=== PATIENT | female | born 1925 | race Caucasian/White ===

== ENCOUNTER 2016-05-02 11:31 | Observation (INO) | payer MEDICARE ==
[2016-05-02] MEDS ORDERED: IPRATROPIUM/ALBUTEROL 3 ML VIAL NEB ONE ×2 (11:56→13:54)
[2016-05-02] MEDS ORDERED: cefTRIAXone SODIUM 1 GM in SODIUM CHL 0.9% 50ML MIN-BAG+ 50 ML IVPB ONE (13:54)
[2016-05-02] MEDS ORDERED: methylPREDNISolone SODIUM SUC 125 MG/2 ML VIAL IV ONE (13:54)
[2016-05-02] MEDS ORDERED: AZITHROMYCIN 250 MG TAB PO ONE (13:54)
--- NOTE | 2016-05-02 14:10 | RAD ---
EXAM DESCRIPTION: XR CHEST 2 VIEWS CLINICAL HISTORY: sob COMPARISON: July 13, 2014 TECHNIQUE: PA/lateral FINDINGS: Stable moderate-sized hiatal hernia. There is no cardiac or pulmonary abnormality. The lungs are clear. There is no effusion. IMPRESSION: All findings are unchanged when compared to prior from July 2014. Electronically signed by: Emre Sargent MD 05/02/2016 14:08
[2016-05-02] MEDS ORDERED: SODIUM CHL 0.9% 50ML MIN-BAG+ 50 ML IVPB ONE (14:13)
[2016-05-02] MEDS ORDERED: cefTRIAXone SODIUM 1 GM VIAL ONE (14:13)
--- NOTE | 2016-05-02 14:20 | ED.PDOC ---
History of Present Illness - General Chief Complaint: Respiratory Problem Stated Complaint: shortness of breath, cough and congestion Time Seen by Provider: 05/02/16 11:55 Source: patient Exam Limitations: no limitations - History of Present Illness Initial Comments: The patient is an 89-year-old female presenting to the emergency room with her daughter. the patient is presenting secondary to progressive shortness of breath over the last week. she reports a runny nose and a significant cough. she is having some chest pain but mainly with cough. She is very short of breath with any activity. she is initially in signifcant respiratory distress. she is showing significant increased work of breathing initially with very little air movement and significant nasal flaring and posturing. she is feeling fatigue with the constant increase work of breathing. she is maintaining a saturation greater than 90% on room air but has significant less dyspnea when on supplemental oxygen. she has been doing xopenex nebs q6 hours for the last 5 days. she has a significant hx of COPD and asthma. no palpitations or edema. the patient is not tachypneic as one would expect. She is maintaining fairly normal breathing rate but the breaths are extremely harsh and forced. Timing/Duration: 1 week Severity: severe Improving Factors: medication Worsening Factors: movement Associated Symptoms: cough, fever/chills, malaise, shortness of breath, weakness Allergies/Adverse Reactions: Allergies Sulfa Drugs Allergy (Severe, Verified 05/02/16 11:46) Home Medications: Ambulatory Orders Albuterol Sulfate [Proair Hfa] 108 mcg INH PRN 07/09/14 Amitriptyline HCl [Elavil] 50 mg PO BEDTIME 07/09/14 Budesonide Inhaler [Pulmicort Flexhaler] 1 puff INH BID 07/09/14 Esomeprazole Magnesium [Nexium] 40 mg PO DAILY 07/09/14 Gabapentin [Neurontin] 1,200 mg PO BEDTIME 07/09/14 Levothyroxine Sodium [Synthroid] 100 mcg PO DAILY 07/09/14 Furosemide [Lasix Tab] 40 mg PO DAILY #30 tab 07/13/14 Mirtazapine [Remeron] 15 mg PO BEDTIME #30 tab 07/13/14 Potassium Chloride [K-Tab] 20 meq PO ACBK #30 tab 07/13/14 predniSONE [Prednisone] 20 mg PO DAILY #21 tab 07/13/14 Past Medical History (General) - Patient Medical History Hx Seizures: No Hx Stroke: No Hx Asthma: Yes Hx of COPD: Yes Hx Cardiac Disorders: Yes Hx Congestive Heart Failure: No Hx Pacemaker: No Hx Hypertension: No Hx Thyroid Disease: Yes Hx Diabetes: No Hx MRSA: Yes - abdomen wound 2014 MRSA Source:: Wound - Vaccination History Hx Tetanus, Diphtheria Vaccination: No Hx Influenza Vaccination: Yes Hx Pneumococcal Vaccination: Yes - Social History Hx Tobacco Use: Yes Hx Alcohol Use: No Hx Substance Use: No Hx Physical Abuse: No Hx Emotional Abuse: No - Activities of Daily Living Hospice Agency (if applicable):: None - Female History Patient is a Female of Child Bearing Age (10 -59 yrs old): No Patient : No Family Medical History - Family History Mother Family History: No Known Living Status: Physical Exam - Physical Exam General Appearance: Alert, Anxious, Obvious distress, Ill Appearing Eye Exam: bilateral normal Ears, Nose, Throat: other - nasal flaring. nares red with clr rhinnorhea. Neck: non-tender, full range of motion, supple, other - significant supraclavicular retractions. Respiratory: chest non-tender, respiratory distress, decreased breath sounds, accessory muscle use, crackles, rhonchi, wheezing Cardiovascular/Chest: normal peripheral pulses, no edema Peripheral Pulses: radial,right: 2+, radial,left: 2+, dorsalis pedis,right: 2+, dorsalis pedis,left: 2+ Gastrointestinal/Abdominal: non tender, soft - obses Rectal Exam: deferred Back Exam: normal inspection, no CVA tenderness Extremity: normal range of motion, non-tender, normal inspection, no pedal edema , no calf tenderness, normal capillary refill Neurologic: saturator tender II-XII nml as tested, alert, oriented x 3 Skin Exam: pallor Comments: Vital Signs - 24 hr 05/02/16 05/02/16 05/02/16 11:35 11:47 12:16 Temperature 99.2 F Pulse Rate Pulse Rate [ 78 67 pulse ox] Respiratory 22 22 22 Rate Blood Pressure 147/61 [Left Arm] O2 Sat by Pulse 99 98 Oximetry 05/02/16 12:38 Temperature Pulse Rate 81 Pulse Rate [ pulse ox] Respiratory 20 Rate Blood Pressure [Left Arm] O2 Sat by Pulse 98 Oximetry above o2 sats with O2. without 91% and decreases with activity. Progress - Progress Progress: 05/02/16 14:23 the patient is an 89-year-old female with a significant COPD exacerbation presenting with significant respiratory distress and demonstrating marked respiratory fatigue, while still managing to maintain an oxygen saturation that is technically adequate. I do not see any evidence of a lobar pneumonia. she has responded very well to supplemental oxygen which she does not have at home. she is receiving iv solumedrol, rocephin and aithromycin here and will be admitted for the exacerbation primarily due to the respiratory distress and fatigue. she has a high probability of deterioration if sent home with her advanced age and current condition. - Results/Orders Results/Orders: Laboratory Tests 05/02/16 12:10 WBC 5.7 RBC 4.56 Hgb 10.6 L Hct 33.4 L MCV 73.2 L MCH 23.2 L MCHC 31.7 L RDW 15.7 H Plt Count 155 MPV 9.8 Absolute Neuts (auto) 3.40 Absolute Lymphs (auto) 1.30 Absolute Monos (auto) 0.70 Absolute Eos (auto) 0.20 Absolute Basos (auto) 0.10 Neutrophils % 59.8 Lymphocytes % 22.5 Monocytes % 12.6 H Eosinophils % 4.1 Basophils % 1.0 PT 11.1 INR 0.980 PTT (SP) 26.7 Sodium 138 Potassium 4.7 Chloride 103 Carbon Dioxide 28 Anion Gap 11.7 L BUN 17 Creatinine 1.01 BUN/Creatinine Ratio 16.8 Random Glucose 93 Serum Osmolality 276.9 Calcium 9.2 Total Bilirubin 0.2 AST 22 ALT 12 Alkaline Phosphatase 78 Creatine Kinase 84 CK-MB (CK-2) 2.6 CK-MB (CK-2) % Not Reportable Troponin I < 0.02 B-Natriuretic Peptide 65.3 Serum Total Protein 6.9 Albumin 3.8 Globulin 3.1 Albumin/Globulin Ratio 1.2 cxr cw copd. Departure - Departure Clinical Impression: COPD exacerbation, Respiratory distress Disposition: Admit Patient Home Medications: Ambulatory Orders Albuterol Sulfate [Proair Hfa] 108 mcg INH PRN 07/09/14 Amitriptyline HCl [Elavil] 50 mg PO BEDTIME 07/09/14 Budesonide Inhaler [Pulmicort Flexhaler] 1 puff INH BID 07/09/14 Esomeprazole Magnesium [Nexium] 40 mg PO DAILY 07/09/14 Gabapentin [Neurontin] 1,200 mg PO BEDTIME 07/09/14 Levothyroxine Sodium [Synthroid] 100 mcg PO DAILY 07/09/14 Furosemide [Lasix Tab] 40 mg PO DAILY #30 tab 07/13/14 Mirtazapine [Remeron] 15 mg PO BEDTIME #30 tab 07/13/14 Potassium Chloride [K-Tab] 20 meq PO ACBK #30 tab 07/13/14 predniSONE [Prednisone] 20 mg PO DAILY #21 tab 07/13/14 Decision To Admit - Decistion To Admit Decision to Admit Reason: Medical Nature Decision to Admit Date: 05/02/16 Decision to Admit Time: 14:30
--- NOTE | 2016-05-02 15:50 | HP ---
SUPERVISING PHYSICIAN: Joseph Calderón MD CHIEF COMPLAINT: Shortness of breath with cough and congestion. HISTORY OF PRESENT ILLNESS: Ms. Delaney is an 89-year-old, female who presented to the Emergency Department via privately owned vehicle with her family complaining of progressive shortness of breath over the last week. She does report she has had a runny nose and a significant cough and has been having some chest pains associated with the cough. She notes she becomes very short of breath with minimal activity. In the Emergency Department, she presented with significant respiratory distress showing increase in breathing with very little air movement and significant nasal flaring and posturing. She noted she was feeling fatigued with constant increased of work to breathe and was barely maintaining O2 saturations greater than 90% on room air. Once placed on supplemental oxygen, the patient had less dyspnea. It was noted she had been taking her Xopenex treatments every 6 hours for well over the last five days. She does have a significant history of chronic obstructive pulmonary disease and asthma. Laboratory studies in the Emergency Room showed the patient had a normal white count initially at 5.7 with no left shift. In the Emergency Department, she initially was given Solu-Medrol 125 mg along with initiation of antibiotics to include azithromycin and ceftriaxone along with DuoNeb treatments. Given the patient's advanced age, underlying comorbidities and exacerbation of chronic obstructive pulmonary disease requiring increasing use of her bronchodilators and showing severe dyspnea with any exertional effort , the patient will be placed in observation for close monitoring and treatment. PAST MEDICAL HISTORY: 1. Seasonal allergies. 2. Gastroesophageal reflux disease. 3. Hyperlipidemia. 4. Hypothyroidism. 5. Osteoarthritis. 6. Congestive heart failure with grade 1 diastolic dysfunction with an estimated 60% ejection fraction on most recent echocardiogram in 08/25. 7. Chronic obstructive pulmonary disease with asthma component. 8. Diverticulosis. 9. Menopause. 10. Peripheral sensory neuropathies. 11. Macular degeneration, left eye. PAST SURGICAL HISTORY: 1. Bilateral cataract removal. 2. Bilateral knee replacement. 3. Tonsillectomy. 4. Bladder suspension. 5. Hysterectomy with bilateral salpingo-oophorectomy. 6. Corneal transplant, right eye. HOME MEDICATIONS: 1. Xanax 0.25 mg at bedtime. 2. Neurontin 1200 mg at bedtime. 3. Lasix 40 mg daily. 4. Nexium 40 mg daily. 5. ProAir 180 mcg inhaled as needed. 6. Potassium chloride 10 mEq daily. 7. Synthroid 100 mcg daily. ALLERGIES: SULFA DRUGS, LIPITOR. FAMILY HISTORY: Father at age 83. Mother at age 95 from congestive heart failure. There is also note of history of cancer in a brother and pancreatic cancer in a sister, both . 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 She lives in [place]. She has never smoked or drank alcohol. She has been for over 70 years. REVIEW OF SYSTEMS: CONSTITUTIONAL: Denies any fevers, chills. She notes she has had an unintentional weight loss over the last several months of approximately 15 to 20 pounds secondary to no appetite. HEENT: Notable nasal congestion with a runny nose, but no sore throat or headaches mentioned. RESPIRATORY: As noted in history of present illness, increasing dyspnea with cough. CARDIOVASCULAR: Denies chest pain or palpitations or syncopal episodes. GASTROINTESTINAL: Denies nausea or vomiting. Denies diarrhea or constipation. GENITOURINARY: Denies dysuria, increased frequency or other urinary symptoms. NEUROLOGIC: Facial features are symmetrical. Extraocular movements are within normal limits. There is no nystagmus noted. There are no discernible neuromotor deficits on exam. She is alert and oriented times three. PHYSICAL EXAMINATION: CHEST: Decreased breath sounds throughout with some very faint inspiratory and expiratory wheezing with some coarse rhonchi sounds, more prominent over the left compared to the right. NEUROLOGIC: Facial features are symmetrical. Extraocular movements are within normal limits. There is no nystagmus noted. There are no discernible neuromotor deficits on exam. She is alert and oriented times three. LABORATORY: White count normal at 5.7, hemoglobin 10.6, hematocrit 33.4. RBC indices show a microcytic/hypochromic presentation. Differential within normal limits. Coagulation studies show normal PT, PT-T. Chemistries show normal electrolytes with potassium 4.7, BUN 17, creatinine 1.0. Liver functions within normal limits. She had two troponins that were less than 0.02 prior to admission. BNP 65. MICROBIOLOGY: Influenza by PCR was negative for A and B. RADIOLOGY: Chest x-ray per radiology interpretation, two view, shows no changes compared to prior exam in 07/2014 with lungs essentially clear with no effusion with stable moderate sized hiatal hernia. ASSESSMENT: 1. Acute exacerbation of chronic obstructive pulmonary disease with some respiratory distress as noted on admission through the Emergency Department with the patient using accessory respiratory muscles with significant respiratory fatigue in efforts to maintain a minimal oxygen saturation. 2. Chronic obstructive pulmonary disease with asthma component with exacerbation noted in #1 requiring ongoing bronchodilators and pulmonary hygiene to maintain O2 saturation of minimum of 92% on nasal cannula at rest. 3. Chronic congestive heart failure with diastolic dysfunction with last echocardiogram in 2014 showing ejection fraction of approximately 60%. 4. History of diverticulosis without any clinical signs or symptoms of diverticulitis on admission. 5. Peripheral sensory neuropathies for which she takes gabapentin. PLAN: The patient will be placed in observation for close monitoring and treatment of underlying exacerbation of chronic obstructive pulmonary disease. She will be provided O2 as needed, aggressive pulmonary hygiene to include DuoNeb treatments. She was started on antibiotic therapy to include azithromycin and ceftriaxone and we will continue this regimen pending sputum culture. She was also started initially on Solu-Medrol 125 mg. This will be continued with 80 mg q.6h. once admitted. We will anticipate length of stay to be at last one to two days. Until then, we will continue to monitor the patient closely and treat appropriately. #[id number] [facility]
[2016-05-02] MEDS ORDERED: ACETAMINOPHEN 325 MG TAB PO PRN (18:33)
[2016-05-02] MEDS ORDERED: ALBUTEROL SULFATE 2.5 MG/3 ML VIAL NEB PRN (18:33)
[2016-05-02] MEDS ORDERED: HYDROcodone 5MG/APAP 325MG 1 EA TAB PO PRN (18:33)
[2016-05-02] MEDS ORDERED: MAGNESIUM HYDROXIDE 30 ML UD PO PRN (18:33)
[2016-05-02] MEDS ORDERED: IV SET AND CAP CHANGE INJ INJ SCH (19:00)
[2016-05-02] MEDS ORDERED: IPRATROPIUM/ALBUTEROL 3 ML VIAL INH SCH (20:00)
[2016-05-02] MEDS ORDERED: GABAPENTIN 400 MG CAP ONE (20:51)
[2016-05-02] MEDS ORDERED: ALPRAZolam 0.25 MG TAB PO SCH (21:00)
[2016-05-02] MEDS ORDERED: GABAPENTIN 1200 MG PO SCH (21:00)
[2016-05-02] MEDS: methylPREDNISolone SODIUM SUC 125 MG/2 ML VIAL IV SCH (21:29)
[2016-05-02] MEDS: SODIUM CHLORIDE 0.9% (FLUSH) 10 ML SYG IV PRN (21:30)
--- NOTE | 2016-05-03 00:18 | PCM.CORE ---
Physician DVT/VTE - Nurse DVT Assessment & Total Each Risk Factor Represents 3 Points: Age over 75 years, Medical PT with Hx of MD, CHF, Severe infection/sepsis Each Risk Factor is 1 Point: Obesity (BMI >25), Serious Lung disease (pnemonia < 1month, COPD, emphysema,etc) DVT Assessment Score: 8 - 5 or more Very High Risk Treatments: Early Ambulation *, Sequential Compression Device Pharmacological: Enoxaparin 40mg SQ Daily
[2016-05-03] MEDS: SODIUM CHLORIDE 0.9% (FLUSH) 10 ML SYG IV PRN ×2 (03:04→06:40)
[2016-05-03] MEDS: methylPREDNISolone SODIUM SUC 125 MG/2 ML VIAL IV SCH ×2 (03:06→09:30)
[2016-05-03] MEDS ORDERED: SODIUM CHLORIDE 0.9% 10 ML VIAL ONE (05:54)
[2016-05-03] MEDS ORDERED: PANTOPRAZOLE SODIUM IV 40 MG VIAL IV SCH (06:30)
[2016-05-03] MEDS ORDERED: SODIUM CHLORIDE 0.9% 10 ML VIAL IV PRN (07:43)
[2016-05-03] MEDS ORDERED: FUROSEMIDE 40 MG TAB PO SCH (09:00)
[2016-05-03] MEDS ORDERED: POTASSIUM CHLORIDE 10 MEQ TAB PO SCH (09:00)
[2016-05-03] MEDS ORDERED: LEVOTHYROXINE SODIUM 0.1 MG TAB PO SCH (09:00)
[2016-05-03] MEDS ORDERED: NON-FORMULARY MEDICATION 1 EA MIS (Esomeprazole Magnesium [Nexium] 40 MG) PO SCH (09:00)
[2016-05-03] MEDS ORDERED: ENOXAPARIN SODIUM 40 MG/0.4 ML SYG SUBCU SCH (10:00)
[2016-05-03 10:39] VITALS: BP 127/69; TEMP 97.2; O2SAT 95
[2016-05-03] MEDS ORDERED: BUDESONIDE/FORMOTEROL 160/4.5 60 PUFF/6 GM INH INH SCH (11:30)
[2016-05-03] MEDS ORDERED: AZITHROMYCIN IV 500 MG in SODIUM CHLORIDE 0.9% 250ML 250 ML IVPB SCH (12:00)
[2016-05-03] MEDS ORDERED: cefTRIAXone SODIUM 1 GM in SODIUM CHL 0.9% 50ML MIN-BAG+ 50 ML IVPB SCH (14:00)
--- NOTE | 2016-05-03 14:26 | DS ---
SUPERVISING PHYSICIAN: Joseph Calderón MD DISCHARGE DIAGNOSIS: 1. Acute exacerbation of chronic obstructive pulmonary disease with some respiratory distress as noted on admission. She was fairly dyspneic in the Emergency Room, although she was able to maintain a minimal oxygen saturation. 2. Chronic obstructive pulmonary disease with asthma component with exacerbation as noted in #1. Several months ago, she stopped her LABA/inhaled steroid and was only using her albuterol and had an O2 saturation of 92% on nasal cannula at rest. 3. Chronic congestive heart failure with diastolic dysfunction, last echocardiogram was in 2014 showing an ejection fraction of approximately 60%. 4. Seasonal allergies. 5. History of diverticulosis. 6. Peripheral sensory neuropathies, presently on gabapentin. HISTORY OF PRESENT ILLNESS: This is an 89-year-old female who presented to the Emergency Room on the date of admission complaining of progressive shortness of breath that has been going on over the last week. She had a significant cough and had some chest discomfort associated with that cough. She reported that she became very short of breath with minimal activity. In the Emergency Room, she had significant dyspnea with increase in work of breathing with significant nasal flaring and posturing. She complained of fatigue, but her O2 saturations were maintained at about 90% on room air. When she was given supplemental oxygen, she was less dyspneic and her oxygen saturations were up to 92%. Dr. Rojas is her primary care physician and she has been on long acting beta agonist as well as an inhaled steroid in the past, but she had not been taking it and the only thing she had been taking was Xopenex. She was taking those approximately four times a day over the last five days. Laboratory in the Emergency Room, the patient had a normal white count initially of 5.7. She was given Solu-Medrol along with initiation of antibiotics including azithromycin and ceftriaxone. The patient was admitted to the hospital for observation. HOSPITAL COURSE: The patient's respiratory status progressively improved with steroid administration as well as her antibiotics. She is feeling much better today and her vital signs have been stable. She has been afebrile. Her labs are showing a white count of 4, hemoglobin 10.3, hematocrit 33.2. Neutrophils are elevated at 91. Chemistries are basically within normal limits with the exception of her glucose which was somewhat elevated at 184 and most likely due to her steroid administration. Her cardiac enzymes were negative. Urinalysis was clear. Chest x-ray showed no acute cardiopulmonary processes and at this point, I believe she can be discharged home. DISCHARGE PLAN: We will discharge the patient home in good condition. She has [facility] that will followup with her tomorrow. She has a followup appointment with Dr. Rojas on Monday at 3 PM. I have continued Zithromax for four more days. She complained of some allergy type symptoms, so I started her on Singulair at bedtime and she is also getting a prednisone taper. She did not like her Xopenex, so I have re-started some albuterol nebulizers. She is to take them at least four times a day and also as needed for coughing, shortness of breath, or wheezing. I started on a Symbicort inhaler and when she sees Dr. Rojas he can evaluate if she needs to continue her LABA/inhaled steroid. I have also put her on guaifenesin scheduled dosing over the next two weeks, then she can use it p.r.n. She is to resume her previous diet and also her previous activity level. She is to call Dr. Rojas' office or return to the hospital with any further problems. DISCHARGE MEDICATIONS: 1. Albuterol. 2. Synthroid. 3. Nexium. 4. Gabapentin. 5. Furosemide. 6. Xanax. 7. Potassium chloride. 8. Guaifenesin. 9. Singulair. 10. Prednisone taper. 11. Azithromycin. 12. Symbicort inhaler. Dr. Calderón is the collaborating physician and available for consultation. #[id number] [facility]
[2016-05-03] MEDS ORDERED: GABAPENTIN 400 MG CAP PO SCH (21:00)
[2016-05-03] MEDS ORDERED: SODIUM CHLORIDE 0.9% (FLUSH) 10 ML SYG IV SCH (21:00)
--- NOTE | 2016-05-09 00:31 | RAD ---
EXAM: Two view chest. INDICATION: Chest pain. COMPARISON: Chest x-ray: 05/02/2016. FINDINGS: Cardiac silhouette: Unremarkable. Nabila: Unremarkable. Lobar consolidation: None. Pleural effusion: None. Pneumothorax: None. Other: A moderate-sized hiatal hernia is noted. Bones: Unremarkable. Other: None. IMPRESSION: 1. No acute cardiopulmonary process. 2. Moderate-sized hiatal hernia Electronically signed by: Jenaro Munson MD 05/03/2016 7:13 AM ANESTHESIOLOGY TECH
== END 2016-05-03 14:50 | disposition home or self-care (01) ==
LOC: ER 11:31 → INTOOBSV 15:49 → MS 15:49
PROVIDERS: ADMIT Nurse Practitioner Family; ATTEND Nurse Practitioner Acute Care
DX: J44.1 Chronic obstructive pulmonary disease with (acute) exacerbation (principal); J45.901 Unspecified asthma with (acute) exacerbation; R06.02 Shortness of breath; I50.32 Chronic diastolic (congestive) heart failure; K57.30 Diverticulosis of large intestine without perforation or abscess without bleeding; G62.9 Polyneuropathy, unspecified; R09.02 Hypoxemia; K21.9 Gastro-esophageal reflux disease without esophagitis; E78.5 Hyperlipidemia, unspecified; E03.9 Hypothyroidism, unspecified; M19.90 Unspecified osteoarthritis, unspecified site; H35.30 Unspecified macular degeneration; K44.9 Diaphragmatic hernia without obstruction or gangrene; Z79.51 Long term (current) use of inhaled steroids; Z79.899 Other long term (current) drug therapy; Z88.2 Allergy status to sulfonamides; Z88.8 Allergy status to other drugs, medicaments and biological substances; Z90.710 Acquired absence of both cervix and uterus; Z96.653 Presence of artificial knee joint, bilateral; Z98.42 Cataract extraction status, left eye; Z98.41 Cataract extraction status, right eye; Z82.49 Family history of ischemic heart disease and other diseases of the circulatory system; Z80.0 Family history of malignant neoplasm of digestive organs
CPT/HCPCS: 36415 ×3; 71020 ×2; 80048; 80053; 81001; 82550 ×2; 82553 ×2; 83880; 84484 ×2; 85025 ×2; 85610; 85730; 87502; 94640 ×3; 94760 ×2; G0378; J0696; J1650; J2930 ×4; J7050; J7611; J7620 ×4; Q0144

== ENCOUNTER → 2016-05-31 | Outpatient (CLI) | payer MEDICARE | END | disposition home or self-care (01) | LOC: GMA 20:25 | PROVIDERS: ATTEND Nurse Practitioner Acute Care | DX: J44.1 Chronic obstructive pulmonary disease with (acute) exacerbation (principal) ==

== ENCOUNTER 2016-06-01 12:33 | Inpatient (IN) | payer MEDICARE ==
--- NOTE | 2016-06-01 13:07 | HP ---
SUPERVISING PHYSICIAN: Mat Calderón M.D. CHIEF COMPLAINT: Shortness of breath with cough and congestion. HISTORY OF PRESENT ILLNESS: Ms. Delaney is an 89 year-old female patient who was seen in the clinic today in followup with complaints of chest congestion and a worsening productive cough. She was seen in the clinic yesterday on 05/31/16 for followup with similar symptoms and had a sputum culture done previously. She was currently on a regimen of antibiotics that included Doxycycline and had just finished a Z-Santos in the weeks before. She notes that she progressively had worsened in her symptoms and went to the clinic with concerns that she was having progressing pneumonia. She was recently admitted to the hospital on 05/02/16 for an exacerbation of her chronic obstructive pulmonary disease with some mild respiratory distress. She does have a significant history of chronic obstructive pulmonary disease and has been utilizing her bronchodilators with an inhaler every 4 hours, sometimes up to 6 to 7 times a day in efforts to decrease her symptoms which include severe dyspnea with any exertional effort and a cough. Sputum culture that was completed on 05/31/16 preliminary shows probable Streptococcus pneumoniae. Given the findings of her culture results preliminary and having recently been on antibiotic regimen, and not showing any significant improvement in her symptoms with some exacerbation of her chronic obstructive pulmonary disease and a previous hospitalization within the last 60 days, the patient is going to be admitted to the hospital for further treatment and evaluation of her symptoms. She was admitted directly from the clinic in stable condition. PAST MEDICAL HISTORY: 1. Seasonal allergies. 2. Gastroesophageal reflux disease. 3. Chronic obstructive pulmonary disease with asthma component with multiple exacerbations within the last 60 days. 4. Hyperlipidemia. 5. Hypothyroidism. 6. Osteoarthritis. 7. Congestive heart failure with grade 1 with diastolic dysfunction with an estimated ejection fraction of 60% on last recent echocardiogram of 2014. 8. Osteoarthritis. 9. Menopause. 10. Diverticulosis. 11. Peripheral central neuropathies. 12. Macular degeneration of the left eye. 13. Hypothyroidism. PAST SURGICAL HISTORY: 1. Bilateral cataract removal. 2. Bilateral knee replacements. 3. Tonsillectomy. 4. Bladder suspension. 5. Hysterectomy with bilateral salpingo-oophorectomy. 6. Corneal transplant of the right eye. HOME MEDICATIONS: 1. Medrol Dosepak. 2. Xanax 0.25 mg at bedtime. 3. Neurontin 1200 mg at bedtime. 4. Lasix 40 mg daily. 5. Nexium 40 mg daily. 6. Symbicort inhaler 160/4.5 one puff twice daily. 7. ProAir inhaler 100 mcg inhaled as needed. 8. Mucinex 600 mg twice daily. 9. Synthroid 100 mcg daily. 10. Singulair 10 mg at bedtime. 11. Potassium chloride 10 mEq daily. ALLERGIES: SULFA DRUGS AND LIPITOR. FAMILY HISTORY: The patient's father at age 83. Mother at 95 from congestive heart failure. There is also a note of history of cancer in a brother and pancreatic cancer in a sister, both are . 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 She lives in [place]. She has never smoked nor drank alcohol. She has been for over 70 years. REVIEW OF SYSTEMS: CONSTITUTIONAL: Positive for fatigue. Denies any fevers or chills. She notes that she has had no unintentional weight gain or weight loss since previous admission. HEENT: Notable for nasal congestion, sinus pressure and a sore throat. Denies any ear pain. RESPIRATORY: As noted in the History of Present Illness. Increasing dyspnea with a cough with a positive sputum culture showing possible Streptococcus pneumoniae. GASTROINTESTINAL: Denies any nausea or vomiting, diarrhea or constipation. GENITOURINARY: Denies any dysuria, increased frequency or other urinary symptoms. NEUROLOGIC: Denies any syncopal episodes or any other neurological symptoms. PHYSICAL EXAMINATION: VITAL SIGNS: Temperature 98.0, pulse 75, blood pressure 140/73, respirations 20 , O2 sat showing 94% on room air. Admission weight is 99.2 kg. GENERAL: The patient appears to be in no acute distress. She does appear ill and fatigued but is well-developed, well-nourished. HEENT: Tympanic membranes are clear bilaterally. Oropharynx is pink with mucosal membranes being moist without any notable lesions. NECK: No jugular venous distention. CHEST: Notable for significant respiratory rate with decreased breath sounds to the right lower lobe with prominent rhonchi heard throughout all field with some mild expiratory wheezing in the left mid lung and left lower lung posteriorly. CARDIOVASCULAR: Regular rate and rhythm without appreciable murmurs, gallops, or rubs. ABDOMEN: Obese but soft, non-tender. Positive bowel sounds. EXTREMITIES: No clubbing, cyanosis or edema. NEUROLOGIC: She is alert and oriented times three. LABORATORY: CBC shows white count 7.5, hemoglobin 9.8, hematocrit 31.1, platelet count 163,000. Differential shows to be without a left shift. Chemistries show normal electrolytes with potassium 4.0, BUN 24, creatinine 0.8 , glucose 102. Liver functions within normal limits. Magnesium 2.1. MICROBIOLOGY: Blood cultures and sputum cultures are pending. Urinalysis is pending. RADIOLOGY: Chest x-ray in the clinic per radiologist interpretation showed no radiographic evidence of acute cardiopulmonary processes. There was note of a moderate to large sized hiatal hernia. ASSESSMENT: 1. Acute exacerbation of chronic obstructive pulmonary disease with bronchitis having failed to respond to outpatient treatment therapy with multiple rounds of antibiotics with a current sputum culture showing preliminary Streptococcus pneumoniae. 2. Chronic obstructive pulmonary disease with multiple exacerbations requiring ongoing bronchial therapy, bronchodilators and pulmonary hygiene. 3. History of congestive heart failure with a diastolic dysfunction with last echocardiogram noted to be 60% in 2014. 4. History of diverticulosis without any signs or symptoms of diverticulitis. 5. Peripheral central neuropathy for which she takes Gabapentin. 6. Hypothyroidism on supplementation. 7. Gastroesophageal reflux disease. 8. Seasonal allergies. PLAN: The patient will be admitted to the hospital for further treatment and evaluation having failed to respond to outpatient treatment plan in regards to exacerbation of chronic obstructive pulmonary disease with concerns for pneumonia with preliminary culture showing that she has a possible Streptococcal pneumoniae species pending final culture results. She was recently on Doxycycline and Azithromycin. Given this history, will start her on antibiotic coverage to include Levaquin as well as a round of Solu-Medrol 80 mg every 6 hours. She will be started on bronchodilator treatments with DuoNeb and aggressive pulmonary hygiene to include CPT. She will be provided oxygen as needed to maintain O2 sats greater than 92%. Will anticipate length of stay to be at least 2 to 3 days. Until then, will continue to monitor the patient closely and treat appropriately. Once the patient is clinically stable enough to be discharged, she can have close clinical followup with her primary care provider, Dr. Rojas, in the clinic. #[id number] [facility]
[2016-06-01] MEDS ORDERED: ACETAMINOPHEN 325 MG TAB PO PRN (13:14)
[2016-06-01] MEDS ORDERED: ALBUTEROL SULFATE 2.5 MG/3 ML VIAL NEB PRN (13:14)
[2016-06-01] MEDS ORDERED: levoFLOXacin 500MG IV 500 MG in PREMIX BAG 1 BAG IVPB SCH (13:30)
[2016-06-01] MEDS: IPRATROPIUM/ALBUTEROL 3 ML VIAL INH SCH ×3 (14:04→19:25)
[2016-06-01] MEDS ORDERED: levoFLOXacin 500MG IV 100 ML IVPB ONE (14:08)
[2016-06-01] MEDS: IV SET AND CAP CHANGE INJ INJ SCH (14:11)
[2016-06-01] MEDS: SODIUM CHLORIDE 0.9% (FLUSH) 10 ML SYG IV SCH ×2 (14:12→22:08)
[2016-06-01] MEDS ORDERED: SODIUM CHLORIDE 0.9% 10 ML VIAL IV PRN (14:33)
[2016-06-01] MEDS: methylPREDNISolone SODIUM SUC 125 MG/2 ML VIAL IV SCH ×3 (17:40→22:09)
[2016-06-01] MEDS ORDERED: IPRATROPIUM/ALBUTEROL 3 ML VIAL NEB PRN (20:32)
[2016-06-01] MEDS ORDERED: ALPRAZolam 0.25 MG TAB PO ONE (22:15)
[2016-06-01] MEDS: PROMETHAZINE W/CODEINE SYR 5 ML UD PO PRN (22:50)
[2016-06-01] MEDS ORDERED: GABAPENTIN 1200 MG PO SCH (23:00)
[2016-06-01] MEDS ORDERED: GABAPENTIN 400 MG CAP ONE (23:24)
[2016-06-01] MEDS ORDERED: MONTELUKAST SODIUM 10 MG TAB ONE (23:24)
[2016-06-01] MEDS: LEVOCETIRIZINE 5 MG PO SCH (23:26)
[2016-06-01] MEDS: MONTELUKAST SODIUM 10 MG TAB PO SCH (23:27)
[2016-06-02] MEDS: methylPREDNISolone SODIUM SUC 125 MG/2 ML VIAL IV SCH ×4 (03:33→22:20)
[2016-06-02] MEDS: SODIUM CHLORIDE 0.9% (FLUSH) 10 ML SYG IV PRN (03:34)
--- NOTE | 2016-06-02 07:17 | RAD ---
EXAM: Two view chest. INDICATION: Chest pain. COMPARISON: Chest x-ray: 05/03/2016. FINDINGS: Cardiac silhouette: Unremarkable. Nabila: Unremarkable. Lobar consolidation: None. Pleural effusion: None. Pneumothorax: None. Other: There is a moderate size hiatal hernia Bones: Unremarkable. Other: None. IMPRESSION: 1. No acute cardiopulmonary process. Moderate size hiatal hernia Electronically signed by: Jenaro Munson MD 06/02/2016 7:16 AM CDT
[2016-06-02] MEDS: IPRATROPIUM/ALBUTEROL 3 ML VIAL INH SCH ×4 (08:40→20:58)
[2016-06-02] MEDS ORDERED: NON-FORMULARY MEDICATION 1 EA MIS (Esomeprazole Magnesium [Nexium] 40 MG) PO SCH (09:00)
[2016-06-02] MEDS: BIFIDOBACTERIUM INFANTIS 4 MG CAP PO SCH (09:45)
[2016-06-02] MEDS: PANTOPRAZOLE SODIUM TAB 40 MG PO SCH (09:45)
[2016-06-02] MEDS: SODIUM CHLORIDE 0.9% (FLUSH) 10 ML SYG IV SCH ×2 (09:45→20:38)
[2016-06-02] MEDS: LEVOTHYROXINE SODIUM 0.1 MG TAB PO SCH (09:45)
[2016-06-02] MEDS: FUROSEMIDE 40 MG TAB PO SCH (10:57)
[2016-06-02] MEDS: guaiFENesin ER TAB 600 MG TAB PO SCH ×2 (10:57→20:38)
[2016-06-02] MEDS ORDERED: NICOTINE PATCH 21 MG TD ONE (11:00)
--- NOTE | 2016-06-02 11:27 | PCM.CORE ---
Physician DVT/VTE - Nurse DVT Assessment & Total Each Risk Factor Represents 3 Points: Age over 75 years Each Risk Factor is 1 Point: Obesity (BMI >25), Serious Lung disease (pnemonia < 1month, COPD, emphysema,etc) DVT Assessment Score: 5 - 5 or more Very High Risk Treatments: Early Ambulation *, Sequential Compression Device Pharmacological: Enoxaparin 40mg SQ Daily
[2016-06-02] MEDS ORDERED: ENOXAPARIN SODIUM 40 MG/0.4 ML SYG SUBCU SCH (11:30)
[2016-06-02] MEDS ORDERED: levoFLOXacin 250MG IV 50 ML IVPB ONE (14:19)
[2016-06-02] MEDS: levoFLOXacin 250MG IV 250 MG in PREMIX BAG 1 BAG IVPB SCH (14:31)
--- NOTE | 2016-06-02 19:51 | PN ---
DATE: 06/02/16 SUPERVISING PHYSICIAN: Mat Calderón M.D. SUBJECTIVE: The patient notes that she had a good night after she was able to go to sleep with an additional dosing of Xanax and some cough medicine. She said she feels much better today, but continues to have a cough and some sinus congestion. She does remain afebrile. OBJECTIVE: VITAL SIGNS: T max 97.9, pulse 74, blood pressure 150/77, respirations 20, O2 sat 96% on nasal cannula at rest. I's and O's show a positive balance of 750 with 1100 in, 350 out. Weight 98.0 kg. CHEST: Breath sounds today are much improved with no audible rhonchi heard, just mild continued expiratory wheezing to bilateral apices. HEART: Regular rate and rhythm. ABDOMEN: Obese but soft, non-tender. Positive bowel sounds. EXTREMITIES: No clubbing, cyanosis or edema. NEUROLOGIC: She is alert and oriented times three. LABORATORY: White count 6.1, hemoglobin 9.8, hematocrit 31.7, platelet count 116,000. Differential today does show a left shift. Chemistries show normal electrolytes with potassium 4.2, BUN 22, creatinine 0.9, glucose 160. MICROBIOLOGY: Blood cultures remain negative at 24 hours. Sputum culture from the clinic continues to need further incubation but still possible Streptococcus pneumoniae suspected. RADIOLOGY: Chest x-ray today per radiology interpretation of a two view chest shows no acute cardiopulmonary process. There is a moderate sized hiatal hernia. ASSESSMENT: 1. Acute exacerbation of chronic obstructive pulmonary disease with bronchitis having failed to respond to outpatient treatment therapy with multiple rounds of antibiotics with a current sputum culture showing preliminary Streptococcus pneumoniae. 2. Chronic obstructive pulmonary disease with multiple exacerbations requiring ongoing bronchial therapy, bronchodilators and pulmonary hygiene. 3. History of congestive heart failure with a diastolic dysfunction with last echocardiogram noted to be 60% ejection fraction in 2015. 4. History of diverticulosis without any signs or symptoms of diverticulitis. 5. Peripheral central neuropathy for which she takes Gabapentin. 6. Hypothyroidism on supplementation. 7. Gastroesophageal reflux disease. 8. Seasonal allergies. PLAN: Will continue with current antibiotic therapy awaiting final culture results. Antibiotic therapy includes Levaquin. She will also remain on aggressive pulmonary hygiene to include DuoNeb treatments and Solu-Medrol 80 mg every 6 hours. Will plan to reevaluate in the morning with repeat laboratory studies. Anticipate possible discharge either tomorrow or Monday pending final culture results and clinical improvement. Once the patient is clinically stable enough to be discharged, she will need followup in the outpatient setting with her primary care physician, Dr. Rojas. Until then, will continue to follow the patient closely and treat appropriately. [facility][id number] [facility]
[2016-06-02] MEDS: MONTELUKAST SODIUM 10 MG TAB PO SCH (20:38)
[2016-06-02] MEDS: GABAPENTIN 400 MG CAP PO SCH (20:38)
[2016-06-02] MEDS: LEVOCETIRIZINE 5 MG PO SCH (20:39)
[2016-06-02] MEDS: PROMETHAZINE W/CODEINE SYR 5 ML UD PO PRN (22:21)
[2016-06-03] MEDS: methylPREDNISolone SODIUM SUC 125 MG/2 ML VIAL IV SCH ×4 (04:06→22:16)
[2016-06-03] MEDS: SODIUM CHLORIDE 0.9% (FLUSH) 10 ML SYG IV PRN ×2 (04:07→22:18)
[2016-06-03] MEDS: PANTOPRAZOLE SODIUM TAB 40 MG PO SCH (05:57)
[2016-06-03] MEDS: LEVOTHYROXINE SODIUM 0.1 MG TAB PO SCH (05:57)
[2016-06-03] MEDS ORDERED: ENOXAPARIN SODIUM 40 MG/0.4 ML SYG SUBCU ONE (07:34)
[2016-06-03] MEDS: IPRATROPIUM/ALBUTEROL 3 ML VIAL INH SCH ×4 (08:04→20:43)
[2016-06-03] MEDS: BIFIDOBACTERIUM INFANTIS 4 MG CAP PO SCH (09:31)
[2016-06-03] MEDS: guaiFENesin ER TAB 600 MG TAB PO SCH ×2 (09:31→20:52)
[2016-06-03] MEDS: ENOXAPARIN SODIUM 40 MG/0.4 ML SYG SUBCU SCH (09:31)
[2016-06-03] MEDS: FUROSEMIDE 40 MG TAB PO SCH (09:32)
[2016-06-03] MEDS: SODIUM CHLORIDE 0.9% (FLUSH) 10 ML SYG IV SCH ×2 (09:33→20:53)
[2016-06-03] MEDS ORDERED: levoFLOXacin 250MG IV 50 ML IVPB ONE (14:28)
[2016-06-03] MEDS: levoFLOXacin 250MG IV 250 MG in PREMIX BAG 1 BAG IVPB SCH (14:33)
[2016-06-03] MEDS: LEVOCETIRIZINE 5 MG PO SCH (20:51)
[2016-06-03] MEDS: MONTELUKAST SODIUM 10 MG TAB PO SCH (20:52)
[2016-06-03] MEDS: GABAPENTIN 400 MG CAP PO SCH (20:52)
--- NOTE | 2016-06-03 20:55 | PN ---
DATE: 06/03/16 SUPERVISING PHYSICIAN: Durga Rojas M.D. SUBJECTIVE: The patient reports that she feels like she is better today. She still continues to have a significant amount of nasal congestion and sinus congestion, but has been afebrile. OBJECTIVE: VITAL SIGNS: T max 98.6, pulse 79, blood pressure 150/80, respirations 20, O2 sat 95% on nasal cannula at rest. I's and O's show a negative balance of 780 with 1570 in, 2350 out. Weight is 97.4 kg. CHEST: Lungs are fairly clear today. There is just some faint rhonchi and faint wheezing heard towards the upper left apices. HEART: Regular rate and rhythm. ABDOMEN: Obese but soft, non-tender. Positive bowel sounds. EXTREMITIES: No clubbing, cyanosis or edema. NEUROLOGIC: She is alert and oriented times three. LABORATORY: White count today is up to 13.0 but she is on Solu-Medrol. Hemoglobin and hematocrit are stable at 9.8 and 31.8, platelet count 183,000. Differential continues to show a left shift. Chemistries show normal electrolytes with potassium 3.7, BUN 22, creatinine 0.93, glucose 144. MICROBIOLOGY: Blood cultures remain negative after 48 hours. ASSESSMENT: 1. Acute exacerbation of chronic obstructive pulmonary disease with bronchitis having failed to respond to outpatient treatment therapy with multiple rounds of antibiotics with a current sputum culture from the clinic prior to admission showing a possible Streptococcus pneumoniae species pending further workup. 2. Chronic obstructive pulmonary disease with multiple exacerbations requiring ongoing bronchial therapy, bronchodilators and pulmonary hygiene. 3. History of congestive heart failure with a diastolic dysfunction with last echocardiogram noted to be 60% ejection fraction in 2014. 4. History of diverticulosis without any signs or symptoms of diverticulitis. 5. Peripheral central neuropathy for which she takes Gabapentin. 6. Hypothyroidism on supplementation. 7. Gastroesophageal reflux disease. 8. Seasonal allergies. PLAN: Will continue with current plan of care to include antibiotics to include Levaquin along with continued Solu-Medrol with intentions of tapering off tomorrow. Plan to repeat studies in the morning to include a CBC and BNP as well as a repeat two view chest x-ray. Anticipate possible discharge tomorrow. Until then, will continue to monitor the patient closely and treat appropriately. Once discharged the patient will need close clinical followup with Dr. Rojas, her primary care provider, in the outpatient setting. [facility][id number] [facility]
[2016-06-03] MEDS: PROMETHAZINE W/CODEINE SYR 5 ML UD PO PRN (22:21)
[2016-06-04] MEDS ORDERED: BENZOCAINE-MENTH LOZ (CEPACOL) 1 EA LOZ MT PRN (00:32)
[2016-06-04] MEDS: TEMAZEPAM 15 MG CAP PO PRN ×2 (00:53→22:18)
[2016-06-04] MEDS: SODIUM CHLORIDE 0.9% (FLUSH) 10 ML SYG IV PRN (04:15)
[2016-06-04] MEDS: methylPREDNISolone SODIUM SUC 125 MG/2 ML VIAL IV SCH ×2 (04:15→09:27)
[2016-06-04] MEDS: LEVOTHYROXINE SODIUM 0.1 MG TAB PO SCH (05:49)
[2016-06-04] MEDS: PANTOPRAZOLE SODIUM TAB 40 MG PO SCH (05:49)
[2016-06-04] MEDS: IPRATROPIUM/ALBUTEROL 3 ML VIAL INH SCH ×4 (07:25→19:42)
[2016-06-04] MEDS: ENOXAPARIN SODIUM 40 MG/0.4 ML SYG SUBCU SCH (09:25)
[2016-06-04] MEDS: BIFIDOBACTERIUM INFANTIS 4 MG CAP PO SCH (09:25)
[2016-06-04] MEDS: guaiFENesin ER TAB 600 MG TAB PO SCH ×2 (09:25→20:49)
[2016-06-04] MEDS: SODIUM CHLORIDE 0.9% (FLUSH) 10 ML SYG IV SCH ×2 (09:25→20:49)
[2016-06-04] MEDS: FUROSEMIDE 40 MG TAB PO SCH (09:25)
[2016-06-04] MEDS ORDERED: levoFLOXacin 250MG IV 50 ML IVPB ONE (13:52)
[2016-06-04] MEDS: levoFLOXacin 250MG IV 250 MG in PREMIX BAG 1 BAG IVPB SCH (14:04)
[2016-06-04] MEDS: IV SET AND CAP CHANGE INJ INJ SCH (14:04)
--- NOTE | 2016-06-04 16:35 | PN ---
DATE: 06/04/16 SUPERVISING PHYSICIAN: Durga Rojas M.D. SUBJECTIVE: The patient is resting in bed. She did have some difficulty last night going to sleep and was given Temazepam, however this was given very late through the night, therefore the patient is somewhat drowsy this morning. She continues to have some nasal congestion, but feels like this has improved once she took her oxygen off, and she is now with a more wet cough and able to mobilize some of her sputum. She does remain afebrile. OBJECTIVE: VITAL SIGNS: T max 97.5, pulse 70, blood pressure 139/67, respirations 18, O2 sat 96% on room air. I's and O's show a near balance with positive 10, 1760 in, 1750 out. Weight is 97.3 kg which is down from admission of 98.0 kg. CHEST: Lungs remain clear to auscultation today. She does have quite a wet cough. There is some slight wheezing heard to the left apices but improved from previous days. HEART: Regular rate and rhythm. ABDOMEN: Obese, soft, non-tender. Positive bowel sounds. EXTREMITIES: No clubbing, cyanosis or edema. NEUROLOGIC: She is alert and oriented times three. LABORATORY: White count today continues to show improvement. It is now 12.7, hemoglobin is stable at 10.6, hematocrit 34.9, platelet count 280,000. Differential shows to be within normal limits. Chemistries show normal electrolytes with potassium 4.0, BUN 23, creatinine 1.1, calcium 9.2, glucose 139. MICROBIOLOGY: Blood cultures remain negative after 48 hours. RADIOLOGY: Plan to repeat a chest x-ray in the morning. ASSESSMENT: 1. Acute exacerbation of chronic obstructive pulmonary disease with bronchitis having failed to respond to outpatient treatment therapy with multiple rounds of antibiotics with final culture results from the clinic showing possible Streptococcus pneumoniae, however they were unable to isolate significant amounts of growth to perform a sensitivity. 2. Chronic obstructive pulmonary disease with multiple exacerbations requiring ongoing therapy with bronchodilators and pulmonary hygiene. 3. History of congestive heart failure with diastolic dysfunction with last echocardiogram noted to be 60% ejection fraction in 2014. 4. History of diverticulosis without any signs or symptoms of diverticulitis. 5. Peripheral central neuropathy for which she takes Gabapentin. 6. Hypothyroidism on supplementation. 7. Gastroesophageal reflux disease. 8. Seasonal allergies. PLAN: The patient is clinically improving. Will continue with current antibiotics that include Azithromycin and Levaquin as well as start a tapered dose of Solu-Medrol. Will anticipate possible discharge tomorrow and plan to reevaluate with laboratory studies and a repeat chest x-ray. Until discharge, will continue to monitor the patient closely and treat appropriately. [facility][id number] [facility]
[2016-06-04] MEDS ORDERED: methylPREDNISolone SODIUM SUC 40 MG/ML VIAL ONE (18:53)
[2016-06-04] MEDS: LEVOCETIRIZINE 5 MG PO SCH (20:47)
[2016-06-04] MEDS: GABAPENTIN 400 MG CAP PO SCH (20:48)
[2016-06-04] MEDS: MONTELUKAST SODIUM 10 MG TAB PO SCH (20:49)
[2016-06-04] MEDS: methylPREDNISolone SODIUM SUC 40 MG/ML VIAL IV SCH (21:01)
[2016-06-04] MEDS: PROMETHAZINE W/CODEINE SYR 5 ML UD PO PRN (22:19)
[2016-06-05] MEDS: SODIUM CHLORIDE 0.9% (FLUSH) 10 ML SYG IV PRN (03:11)
[2016-06-05] MEDS: methylPREDNISolone SODIUM SUC 40 MG/ML VIAL IV SCH ×3 (03:12→14:24)
[2016-06-05] MEDS: PANTOPRAZOLE SODIUM TAB 40 MG PO SCH (06:06)
[2016-06-05] MEDS: LEVOTHYROXINE SODIUM 0.1 MG TAB PO SCH (06:06)
--- NOTE | 2016-06-05 06:51 | RAD ---
EXAM: Two view chest. INDICATION: Chest pain. COMPARISON: Chest x-ray: 06/02/2016. FINDINGS: Cardiac silhouette: Unremarkable. Nabila: Unremarkable. Lobar consolidation: None. Pleural effusion: None. Pneumothorax: None. Other: There is a moderate size hiatal hernia Bones: Unremarkable. Other: None. IMPRESSION: 1. No acute cardiopulmonary process. Moderate size hiatal hernia Electronically signed by: Jenaro Munson MD 06/05/2016 6:50 AM CDT
[2016-06-05] MEDS: IPRATROPIUM/ALBUTEROL 3 ML VIAL INH SCH ×2 (07:35→11:40)
[2016-06-05] MEDS: SODIUM CHLORIDE 0.9% (FLUSH) 10 ML SYG IV SCH (08:47)
[2016-06-05] MEDS: ENOXAPARIN SODIUM 40 MG/0.4 ML SYG SUBCU SCH (08:48)
[2016-06-05] MEDS: FUROSEMIDE 40 MG TAB PO SCH (08:48)
[2016-06-05] MEDS: guaiFENesin ER TAB 600 MG TAB PO SCH (08:48)
[2016-06-05] MEDS: BIFIDOBACTERIUM INFANTIS 4 MG CAP PO SCH (08:48)
[2016-06-05] MEDS ORDERED: levoFLOXacin 250MG IV 50 ML IVPB ONE (14:17)
[2016-06-05] MEDS: levoFLOXacin 250MG IV 250 MG in PREMIX BAG 1 BAG IVPB SCH (14:29)
[2016-06-05 15:27] VITALS: BP 155/77; TEMP 97.3; O2SAT 95
--- NOTE | 2016-06-06 11:03 | DS ---
SUPERVISING PHYSICIAN: Durga Rojas MD DISCHARGE DIAGNOSIS: 1. Acute exacerbation of chronic obstructive pulmonary disease with bronchitis having failed to respond to outpatient treatment therapy with multiple rounds of antibiotics with final culture results showing Streptococcus pneumoniae , however they were unable to isolate significant amounts of growth to perform a sensitivity and final identification. The patient was treated with Levaquin and showed good clinical improvement. 2. Chronic obstructive pulmonary disease with multiple exacerbations, requiring ongoing therapy with bronchodilators and pulmonary hygiene. 3. History of congestive heart failure with diastolic dysfunction with last echocardiogram noted to be 60% ejection fraction in 2014. 4. History of diverticulosis without any signs or symptoms of diverticulitis. 5. Peripheral central neuropathy for which she takes gabapentin. 6. Hypothyroidism on supplementation. 7. Gastroesophageal reflux disease. 8. Seasonal allergies. HISTORY OF PRESENT ILLNESS: Ms. Delaney is an 89 year-old female patient who was seen in the clinic on date fo admission in followup with complaints of chest congestion and a worsening productive cough. She was seen in the clinic on 05/31/16 for followup with similar symptoms and had a sputum culture done previously. She was currently on a regimen of antibiotics that included Doxycycline and had just finished a Z-Santos in the weeks before. She noted that she progressively had worsened in her symptoms and went to the clinic with concerns that she was having progressing pneumonia. She was recently admitted to the hospital on 05/02/16 for an exacerbation of her chronic obstructive pulmonary disease with some mild respiratory distress. She does have a significant history of chronic obstructive pulmonary disease and has been utilizing her bronchodilators with an inhaler every 4 hours, sometimes up to 6 to 7 times a day in efforts to decrease her symptoms which include severe dyspnea with any exertional effort and a cough. Sputum culture that was completed on 05/31/16 preliminary shows probable Streptococcus pneumoniae. Given the findings of her culture results preliminary and having recently been on antibiotic regimen, and not showing any significant improvement in her symptoms with some exacerbation of her chronic obstructive pulmonary disease and a previous hospitalization within the last 60 days, the patient was admitted to the hospital for further treatment and evaluation of her symptoms. She was admitted directly from the clinic in stable condition. LABORATORY: On admission, white count was 7.5. On 06/03/16 after initiation of corticosteroids, white count did maximize at 13 and by discharge had normalized to 10.1. Hemoglobin and hematocrit stayed stable and at discharge were 10.0 and 32.2. Platelet count was within normal limits at 182,000. Differential did show a persistent left shift. Chemistries showed normal electrolytes on admission and at time of discharge, electrolytes showed just a low potassium of 3.5. BUN 25, creatinine 1.06, glucose 135, calcium 8.6. Liver functions were all within normal limits. Initial magnesium was normal at 2.1. Urinalysis was within normal limits. MICROBIOLOGY: She had two blood cultures that were negative after four days. RADIOLOGY: On admission, she had a chest x-ray that showed no acute cardiopulmonary process with a moderate sized hiatal hernia. Followup chest x- ray on date of discharge per radiology interpretation showed no acute cardiopulmonary processes, continued moderate sized hiatal hernia. HOSPITAL COURSE: Ms. Delaney was admitted on 06/01/16 as noted in history of present illness for having failed to respond to outpatient treatment plan with exacerbation of chronic obstructive pulmonary disease, chronic bronchitis with possible concerns for underlying pneumonia that showed initial Streptococcus pneumoniae preliminarily on cultures. The patient was initiated on antibiotics that included Levaquin and she was also started on corticosteroids. She showed good clinical improvement with aggressive pulmonary hygiene and CPT therapy along with antibiotics and fluids and on the day of discharge was felt clinically well enough to be discharged to followup with Dr. Rojas in the outpatient setting. PLAN: The patient was discharged on 06/05/16 to have close clinical followup with Dr. Rojas. She was instructed to call Dr. Rojas' office the following Monday after discharge to secure an appointment date and do so within 7 days or earlier. She was to resume all her medications as previously instructed with doses to pay close attention to any changes and to start new prescriptions as instructed. She was to increase her activity as tolerated and return to the hospital if she is not improving in her condition or showing any worsening of her condition. At time of discharge, prescriptions given included: 1. Levofloxacin 500 mg, #7. 2. Prednisone 10 mg tapering dose, #30. She was to take 40 mg x3 days, 30 mg x3 days, 20 mg x3 days, and 10 mg x3 days. All other medications prior to admission were resumed except for any antibiotics she was on prior to admission as well as continuing to hold the doxycycline and any prednisone she still had. At time of discharge, she was stable and in good condition. #[id number] [facility]
== END 2016-06-05 15:50 | disposition home or self-care (01) | DRG 191 ==
LOC: MS 12:33
PROVIDERS: ADMIT Emergency Medicine; ATTEND Nurse Practitioner Family
DX: J44.0 Chronic obstructive pulmonary disease with (acute) lower respiratory infection (principal); I50.32 Chronic diastolic (congestive) heart failure; J44.1 Chronic obstructive pulmonary disease with (acute) exacerbation; J20.2 Acute bronchitis due to streptococcus; B95.3 Streptococcus pneumoniae as the cause of diseases classified elsewhere; G62.9 Polyneuropathy, unspecified; J30.2 Other seasonal allergic rhinitis; E03.9 Hypothyroidism, unspecified; K21.9 Gastro-esophageal reflux disease without esophagitis; E78.5 Hyperlipidemia, unspecified; M19.90 Unspecified osteoarthritis, unspecified site; H35.30 Unspecified macular degeneration; Z79.899 Other long term (current) drug therapy; Z96.653 Presence of artificial knee joint, bilateral; Z94.7 Corneal transplant status; Z79.51 Long term (current) use of inhaled steroids; Z88.2 Allergy status to sulfonamides; Z88.8 Allergy status to other drugs, medicaments and biological substances